=== PATIENT | female | born 1960 | race Caucasian/White ===

== ENCOUNTER 2017-09-01 16:42 | Emergency (ER) | payer MEDICARE, OTHER ==
--- NOTE | 2017-09-01 18:26 | ERNOTE ---
Upper Extremity HPI - Narrative Date of Service: 09/01/17 - General Extremities Pain Location: 5th finger: left Time Seen by Provider: 09/01/17 17:25 Source: patient, family Exam Limitations: other - mental impairment - Immun/Allergies/Home Medications Immunizations: IMMUNIZATION HX Immunizations Up to Date Yes History of Influenza Vaccine No Allergies/Adverse Reactions: Allergies Allergy/AdvReac Type Severity Reaction Status Date / Time Iodinated Contrast- Oral and Allergy Verified 09/01/17 17:12 IV Dye [Iodinated Contrast Media - IV Dye] - History of Present Illness Narrative: Patient presents with a left hand/finger injury. She fell and injured it overnight with a fall from the tiolet. It is her left 5th finger and ulnar hand. It was noted to be hurting and bruised so she presents for evaluation. No other injuries. No acute N/T/W noted. Hurts to move it but she cannot rate the pain. no other injuries. No head injury, no neck or back pain. Has not seen anyone else for this. Occurred: other - approx 3 am Location of Incident: home Method of Injury: Reports: fell, direct blow Loss of Consciousness: Reports: no loss of consciousness Modifying Factors - (Improves): Reports: rest Modifying Factors - (Worsens): Reports: movement Associated Symptoms: Reports: other - denies Other Injuries: Reports: none Prior Treament: Denies: recently seen Review of Systems - Review of Systems Constitutional: Absent: fever Respiratory: Absent: shortness of breath Cardiology: Absent: chest pain Skin: Present: other - no wound Neurological: Absent: weakness - Patient's Past Medical History Patient History - Medical: Diabetes Type 2, Seizures Patient History - Cardiac/Respiratory: No pertinent hx Patient History - Cancer: No Hx of Cancer Patient History - Surgical Procedures: Orthopedic Patient History - Other: None - Social History Living Situations: home Psych History: No pertinent hx Smoking Status: Never smoker Have you smoked in the past 12 months: No Do you dip or chew tobacco: No - Immunizations Immunizations Up to Date: Yes History of Influenza Vaccine: No Physical Exam - Physical Exam General Appearance: Present: alert, no apparent distress Head Exam: Present: normal inspection, no evidence of injury Eye Exam: Normal inspection: bilateral, PERRL: bilateral Ears, Nose, Throat: Present: normal ENT inspection Neck: Absent: tender posterior midline Respiratory: Present: no respiratory distress Cardiovascular/Chest: Present: normal peripheral pulses Back Exam: Present: normal range of motion, no vertebral tenderness Extremity Exam: Present: other - tenderess proximal 5th left finger with some swelling, mild ulnar hand tendenress. Limited exam d/t pain but no clear loss of tendon function. Brisk capillary refill in the digit. No nailbed injury. Mild swelling and bruising. Neurological Exam: Present: alert, no motor/sensory deficits, other - no clear acute motor or sensory deficits. Skin Exam: Present: normal color, warm/dry, other - no wound or laceration ED Progress - Vital Signs Patient's Vital Signs:: I have reviewed the patient's vital signs. Vital Signs: Vital Signs 09/01/17 09/01/17 17:02 17:57 Temperature 36.4 C L Pulse Rate 90 88 Respiratory 20 20 Rate Blood Pressure 137/72 134/70 O2 Sat by Pulse 100 100 Oximetry - X-Ray X-Ray #1 X-Ray: hand Interpretation: Interp. by me X-ray Comments: No real-time radiology reads at this time. 5th proximal phalxny fracture noted. - Progress/Reassessment Chief Complaint: Hand Injury/Pain Progress Note-Subjective: 09/01/17 18:25 D/W Dr Tariq via phone, he recommends splint and office f/u. Nursing placed splint as is customary here. i discussed warning signs and reasons to return as well as the need for close f/u. They understand official radiology report not available at this time. Departure Clinical Impression: Phalanx, proximal fracture of finger - Departure Disposition: Home self-care Condition: Stable Instructions: Finger Fracture, [id number] Additional Instructions: Leave splint in place until seen by orthopedics. Call Orthopedics in the morning for an appointment time, I spoke with Dr Tariq over the phone tonight. An official radiology report will be available tomorrow. Rest. Ice. Elevation. Return for increased pain, numbness, tingling, weakness or if your condition worsens or changes in any way. Referrals: Brittany Lackey ARNP [Primary Care Provider] -
[2017-09-01 18:35] VITALS: BP 105/71
== END 2017-09-01 18:33 | disposition home or self-care (01) ==
LOC: ER 16:42
PROC: 2W3KX1Z Immobilization of Left Finger using Splint (ICD-10-PCS; principal; 2017-09-01)
DX: S62.647A Nondisplaced fracture of proximal phalanx of left little finger, initial encounter for closed fracture (principal); W18.11XA Fall from or off toilet without subsequent striking against object, initial encounter; Y92.002 Bathroom of unspecified non-institutional (private) residence as the place of occurrence of the external cause

== ENCOUNTER 2017-09-03 18:23 | Emergency (ER) | payer MEDICARE, OTHER ==
[2017-09-03 18:52] VITALS: BP 116/74
--- NOTE | 2017-09-03 19:08 | ERNOTE ---
Upper Extremity HPI - Narrative Date of Service: 09/03/17 - General Extremities Pain Location: 5th finger: left - known fracture and abeba taping has come off. Time Seen by Provider: 09/03/17 18:55 Source: family, old records Exam Limitations: other - Mentally impaired. - Immun/Allergies/Home Medications Immunizations: IMMUNIZATION HX Immunizations Up to Date Yes History of Influenza Vaccine Yes Allergies/Adverse Reactions: Allergies Allergy/AdvReac Type Severity Reaction Status Date / Time Iodinated Contrast- Oral and Allergy Verified 09/03/17 18:52 IV Dye [Iodinated Contrast Media - IV Dye] Home Medications: HOME MEDICATIONS Unobtainable 09/03/17 [Last Taken Unknown] - History of Present Illness Narrative: Patient was in the ER several days ago with a fracture of the proximal 5th phalynx. Had the finger abeba taped and apparently saw ortho who states they will apply a splint on Tuesday. Patient and mother are concerned about the movement of the finger due to mentation of patient. Date (Duration): 08/31/17 Occurred: last week Location of Incident: home Severity: mild Method of Injury: Reports: fell Reason for Fall: Reports: other - Fell of toilet Modifying Factors - (Worsens): Reports: movement Associated Symptoms: Reports: other - Denies Other Injuries: Reports: none Review of Systems - Narrative Narrative: Again this is a previous injury with no acute event. - Review of Systems Constitutional: Present: no symptoms reported Musculoskeletal: Present: other - Previous fracture of proximal 5th phalynx. No worsening of symptoms. States still slightly stiff and swollen. Abeba taking has come off. Neurological: Present: other - Chronic low mentation. Denies any loss of sensation distally in the phalynx - Patient's Past Medical History Patient History - Medical: Diabetes Type 2, Seizures Patient History - Cardiac/Respiratory: No pertinent hx Patient History - Cancer: No Hx of Cancer Patient History - Surgical Procedures: Orthopedic Patient History - Other: None - Social History Living Situations: home Psych History: No pertinent hx Smoking Status: Never smoker Alcohol Use: none Drug Use: none - Immunizations Immunizations Up to Date: Yes History of Influenza Vaccine: Yes Physical Exam - Physical Exam General Appearance: Present: alert, no apparent distress Extremity Exam: Present: other - Ecchymosis over the proximal phalynx between the PIP and MCP joint. Mild swelling. Has active but limited ROM. Distal sensation intact. Cap refill <2 seconds. Partially abeba taped to next finger. Neurological Exam: Present: alert ED Progress - Vital Signs Patient's Vital Signs:: I have reviewed the patient's vital signs. Vital Signs: Vital Signs 09/03/17 18:46 Temperature 36.8 C Pulse Rate 78 Respiratory 18 Rate Blood Pressure 116/74 O2 Sat by Pulse 98 Oximetry - Progress/Reassessment Chief Complaint: Upper Extremity Injury/Problem Progress:: Improved Progress Note-Subjective: 09/03/17 19:15 Nursing to aply ulnar gutter splint. Procedures Comment: Splinting performed by nursing staff per ortho request. Departure Clinical Impression: Phalanx, proximal fracture of finger - Departure Disposition: Home Follow Up Needed Condition: Good Additional Instructions: May loosen splint if you lose sensation in the finger or it begins to become numb or tingle. . Otherwise follow up with ortho as planned. Do not get the splint wet.
== END 2017-09-03 19:24 | disposition home or self-care (01) ==
LOC: ER 18:23
PROC: 2W3KX1Z Immobilization of Left Finger using Splint (ICD-10-PCS; principal; 2017-09-03)
DX: M84.44 Pathological fracture, hand and fingers (principal)